=== PATIENT | male | born 1990 | race Caucasian/White ===

== ENCOUNTER 2021-03-04 16:51 | Emergency (ER) | payer SELFPAY ==
[2021-03-04 16:52] VITALS: BP 138/93; PULSE 79; RESP 28; TEMP 35.7; O2SAT 100; BMI 21.7
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
[2021-03-04] MEDS: Morphine 4 MG/ML Syringe IM (17:37)
[2021-03-04] MEDS: Diphth,Pertuss(Acell),Tet Vac 0.5 ML Vial IM (17:37)
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
[2021-03-04 19:31] VITALS: BP 135/86; PULSE 72; RESP 18; O2SAT 100
== END 2021-03-04 20:15 | disposition home or self-care (01) ==
PROVIDERS: Emergency Provider Emergency Medicine
DX: S42.002A Fracture of unspecified part of left clavicle, initial encounter for closed fracture (principal); S63.502A Unspecified sprain of left wrist, initial encounter; S66.912A Strain of unspecified muscle, fascia and tendon at wrist and hand level, left hand, initial encounter; V28.4XXA Motorcycle driver injured in noncollision transport accident in traffic accident, initial encounter
CPT/HCPCS: 71045; 73000; 73110; 73630; 90715; 96372; 99283